=== PATIENT | female | born 1975 | race Hispanic/Latino ===

== ENCOUNTER 2024-10-29 16:12 | Emergency (ER) | payer SELFPAY ==
[~2024-10-29] VITALS: Ht 162.6 cm; Wt 86.2 kg
--- NOTE | 2024-10-29 16:45 | ERN ---
General Chief Complaint: Dizzy/Light Headed Stated Complaint: DIZZINESS Time Seen by MD: 16:15 Source: patient History of Present Illness Initial Comments Patient is a 49-year-old female coming in to be evaluated for near-syncope. Per patient she was at work bent over while she has tried to stand up she felt really dizzy. Patient states she thinks she might have passed out but is not 100% sure. The moment of evaluation triage patient is asymptomatic. Allergies: Coded Allergies: No Known Drug Allergies (Unverified Allergy, Unknown, 10/29/24) Past Medical History Past Medical History: No Pertinent History Past Surgical History: ROS Dictation CONSTITUTIONAL: No chills, no fever, no weakness, no diaphoresis, no malaise. HEAD/FACE: No signs of trauma. EENT: No eye pain, no blurred vision, no tearing, no double vision, no ear pain, no ear discharge, no nose pain, no nasal congestion, no throat pain, no throat swelling, no mouth pain. RESPIRATORY: No cough, no orthopnea, no SOB, no stridor, no wheezing. CARDIOVASCULAR: No chest pain, no edema, no palpitations, no syncope. GASTROINTESTINAL/ABDOMINAL: No abdominal pain, no constipation, no diarrhea, no nausea, no vomiting. GENITOURINARY: No abnormal discharge, no dysuria, no frequent urination, no hematuria. No complaints of pain in the genitals. MUSCULOSKELETAL: No back pain, no gout, no joint pain, no joint swelling, no muscle pain, no muscle stiffness, no neck pain. INTEGUMENTARY: No change in color, no change in hair/nails, no dryness, no lesion, no lumps, no rash. NEUROLOGICAL/PSYCH: No anxiety, not depressed, no emotional problem, no headache, no numbness, no pre-existing deficit, no history of seizures, no tremors, no weakness. HEMATOLOGIC/LYMPHATIC: Not anemic, no history of blood clots, no apparent bleeding, no bruising, glands not swollen. All Systems Negative, Except as Noted. Physical Exam Physical Exam Dictation VITAL SIGNS: Reviewed. GENERAL APPEARANCE: Alert, oriented x3, no acute distress, obese. HEAD AND FACE: Non-traumatic. EYES: PERRL, pink conjunctivas, eyelid no trauma, anterior chamber clear. EARS: Pinnas intact and no signs of trauma or erythema. Ear canals clear and no discharge. TMs no erythema. NOSE: No discharge, no bleeding. OROPHARYNX: Mouth normal, teeth no caries, tongue pink. Pharynx clear, no erythema. Tonsils no exudates, no abscesses noted. Mucous membrane moist. NECK: Supple, non-tender, no thyromegaly, no masses, no JVD, no bruits. BREAST: Deferred. CHEST: No tenderness, no crepitus, no paradoxical movement, no retractions. LUNGS: Clear, well-ventilated, symmetric, no rales, no wheezing, no rhonchi, no stridor, good breath sounds bilaterally. HEART: Regular rate, regular rhythm, no murmur, no gallops. VASCULAR: No peripheral edema. ABDOMEN: Soft, positive bowel sounds, nondistended, no guarding, nontender, no rebound, no masses no hepatomegaly, no splenomegaly, no Sinclair's sign, no hernias. RECTAL: Deferred. GENITAL: Deferred. NEUROLOGICAL: Normal speech, gross motor function intact, gross sensory function intact. MUSCULOSKELETAL: Neck nontender, full range of motion, back nontender, full range of motion. EXTREMITIES: Nontender, full range of motion. SKIN: Color pink, dry, no turgor, no rash, no lacerations, no abrasions, no contusions. LYMPHATICS: Deferred. Results Laboratory and Microbiology Lab and Micro Result Laboratory Tests Test 10/29/24 16:50 White Blood Count 6.8 K/uL (4.8-10.8) Red Blood Count 4.86 MIL/uL (4.00-5.50) Hemoglobin 14.2 g/dL (12.0-16.0) Hematocrit 43.7 % (36-48) Mean Corpuscular Volume 89.9 fL (79-99) Mean Corpuscular Hemoglobin 29.2 pg (27.0-33.0) Mean Corpuscular Hemoglobin Concent 32.5 g/dL (32.0-36.0) Red Cell Distribution Width 13.0 % (11.0-15.5) Platelet Count 160 K/uL (130-400) Mean Platelet Volume 12.8 fL (7.5-10.5) H Immature Granulocyte % (Auto) 0.3 % (0-1) Neutrophils (%) (Auto) 71.8 % (40.0-77.0) Lymphocytes (%) (Auto) 20.1 % (21.0-51.0) L Monocytes (%) (Auto) 5.6 % (3.0-13.0) Eosinophils (%) (Auto) 1.6 % (0.0-8.0) Basophils (%) (Auto) 0.6 % (0.0-5.0) Neutrophils # (Auto) 4.9 K/uL (1.8-7.7) Lymphocytes # (Auto) 1.4 K/uL (1.0-4.8) Monocytes # (Auto) 0.4 K/uL (0.1-1.0) Eosinophils # (Auto) 0.11 K/uL (0.00-0.70) Basophils # (Auto) 0.04 K/uL (0.00-0.20) Absolute Immature Granulocyte (auto 0.02 K/uL (0-1) Nucleated Red Blood Cells 0.0 % (0.0-0.19) Prothrombin Time 9.8 SEC (9.6-11.6) Prothromb Time International Ratio <= 0.93 (0.85-1.15) Activated Partial Thromboplast Time 25.4 SEC (26.3-35.5) L Sodium Level 145 mmol/L (136-145) Potassium Level 4.3 mmol/L (3.5-5.1) Chloride Level 106 mmol/L (101-111) Carbon Dioxide Level 34 mmol/L (21-32) H Blood Urea Nitrogen 6 mg/dL (7-18) L Creatinine 0.7 mg/dL (0.5-1.0) Glomerular Filtration Rate Calc 107 mL/min (>90) Random Glucose 94 mg/dL (70-105) Total Calcium 8.8 mg/dL (8.5-10.1) Magnesium Level 2.00 mg/dL (1.80-2.40) Total Creatine Kinase 33 U/L (21-232) Troponin I High Sensitivity 5 ng/L (4-50) B-Type Natriuretic Peptide 17 pg/mL (0-100) Labs Reviewed?: Yes EKG/XRAY/US/CT/MRI EKG Comment 10/29/2024 time 4:45 p.m. Ventricular rate 61 Sinus rhythm [place] [address] wave elevation or depression MDM MDM: Differential diagnosis: Rationale: Tests considered and ordered secondary to shared decision making include: Previous outside records reviewed: Old ER visits. Risk of complication and/or morbidity or mortality of patient management: None Medications-Per medication reconciliation Need for hospitalization: Patient does not meet criteria for hospitalization. Need for emergency major/minor surgery: No There are no social concerns with this patient. Prescription drug management Prescriptions will include symptomatic care Patient's prior external medical records from other ER visits were reviewed by me as indicated. Prior testing and results from previous visits were reviewed. Prior tests were taken into account with medical decision making and resource utilization, independent historian/historians were used to obtain complete medical history. I independently interpreted the test that were performed, results were reviewed by me and considered findings on radiology if ordered. Medical management and examination interpretation discussions were had by me with other qualified healthcare professionals as indicated for the patient's care. ED Course Orders Procedure Category Date Status Time Cbc With Differential LAB 10/29/24 Complete 16:34 Prothrombin Time With LAB 10/29/24 Complete INR 16:34 B-Type Natriuretic LAB 10/29/24 Complete Peptide 16:34 Chest 1vw RAD 10/29/24 Resulted 16:34 12 Lead Ekg Tracing- EKG 10/29/24 Complete Technical 16:34 Lactated Ringers PHA 10/29/24 Complete 1000ml (Lactated 17:00 Magnesium LAB 10/29/24 Complete 16:34 Creatine Kinase, Total LAB 10/29/24 Complete 16:34 Troponin I High LAB 10/29/24 Complete Sensitivity 16:34 Urinalysis Profile LAB 10/29/24 In Process 16:34 Partial LAB 10/29/24 Complete Thromboplastin Time 16:34 Basic Metabolic Panel LAB 10/29/24 Complete 16:34 Current Medications Medications (Trade) Dose Ordered Sig/Sam Route PRN Reason Start Time Stop Time Status Last Admin Dose Admin Lactated Ringer's 1,000 ml @ 0 mls/hr ONCE ONCE IV 10/29/24 17:00 10/29/24 17:01 DC 10/29/24 17:26 Vital Signs Date Time Temp Pulse Resp B/P (MAP) Pulse Ox O2 Delivery O2 Flow Rate FiO2 10/29/24 17:30 97.9 67 18 142/89 96 Room Air* 0 21 10/29/24 16:13 98.2 76 16 136/91 97 Room Air* 0 21 10/29/24 16:13 98.2 76 16 136/91 97 Room Air 0 DX & DISP Disposition: Other(Comment) (Patient care transitioned to Dr. Young) Departure Condition: Stable Referrals: SELF,REFERRAL (PCP) PRAVEENA GEORGE MD Oct 29, 2024 16:45
--- NOTE | 2024-10-29 16:47 | EKG ---
[facility] Test Date: 2024-10-29 Test Time: 16:45:05 Pat Name: ENEDELIA LARES Department: ED Room: Gender: F [place] [place] Singer: [id number] : 1975 Requested By: PRAVEENA GEORGE Order Number: [id number] Reading MD: Marcial Blackwood Measurements Intervals [place] Rate: 61 P: 56 AL: 150 QRS: 5 QRSD: 94 T: 45 QT: 386 QTc: 390 Interpretive Statements Sinus rhythm No previous ECG available for comparison Electronically Signed On 11-01-2024 17:32:10 CHIEF COMMUNICATIONS OFFICER by Marcial Blackwood Please click the below link to view image of tracing.
--- NOTE | 2024-10-29 17:02 | HMCIMG ---
Exam Type: CHEST 1VW Clinical Information: syncope Comparison: None Findings: The lungs are clear of infiltrates. The heart is enlarged. Bony and soft tissue structures of the chest wall are unremarkable. IMPRESSION: Cardiomegaly. Clear lungs.
[2024-10-29 17:03] LABS: BASOPHILS # (AUTO) 0.04 K/uL (0.00-0.20); BASOPHILS % (AUTO) 0.6 % (0.0-5.0); EOSINOPHILS # (AUTO) 0.11 K/uL (0.00-0.70); EOSINOPHILS % (AUTO) 1.6 % (0.0-8.0); HEMATOCRIT 43.7 % (36-48); IMMATURE GRANULOCYTE ABSOLUTE 0.02 K/uL (0-1); LYMPHOCYTES # (AUTO) 1.4 K/uL (1.0-4.8); LYMPHOCYTES % (AUTO) 20.1 % (21.0-51.0); MEAN CORPUSCULAR HEMOGLOBIN 29.2 pg (27.0-33.0); MEAN CORPUSCULAR HGB CONC 32.5 g/dL (32.0-36.0); MEAN CORPUSCULAR VOLUME 89.9 fL (79-99); MONOCYTES # (AUTO) 0.4 K/uL (0.1-1.0); MONOCYTES % (AUTO) 5.6 % (3.0-13.0); NEUTROPHILS # (AUTO) 4.9 K/uL (1.8-7.7); NEUTROPHILS % (AUTO) 71.8 % (40.0-77.0); PLATELET COUNT (AUTO) 160 K/uL (130-400); RED BLOOD CELL COUNT(AUTO) 4.86 MIL/uL (4.00-5.50); WHITE BLOOD COUNT (AUTO) 6.8 K/uL (4.8-10.8)
[2024-10-29 17:15] LABS: CREATININE 0.7 mg/dL (0.5-1.0); POTASSIUM 4.3 mmol/L (3.5-5.1)
[2024-10-29 17:17] LABS: INR <= 0.93 (0.85-1.15); PROTHROMBIN TIME 9.8 SEC (9.6-11.6)
[2024-10-29 17:19] LABS: PARTIAL THROMBOPLASTIN TIME 25.4 SEC (26.3-35.5)
[2024-10-29] MEDS: LACTATED RINGERS 1000ML 1,000 ML IV ONE (17:26)
[2024-10-29 17:36] LABS: B-TYPE NATRIURETIC PEPTIDE 17 pg/mL (0-100)
--- NOTE | 2024-10-29 18:48 | NUR ---
ORTHOSTATIC VITALS LAYING: BP 156/83 HEART RATE 77 99 PERCENT RA SITTING: BP 152/99 HEART RATE 87 99 PERCENT RA STANDING:BP 155/101 HEART RATE 68 99 PERCENT RA
[2024-10-29 18:49] LABS: APPEARANCE,URINE CLEAR (CLEAR); BILIRUBIN,URINE NEGATIVE (NEGATIVE); COLOR,URINE LIGHT-YELLOW (YELLOW); GLUCOSE, URINE (UA) NEGATIVE (NEGATIVE); KETONES,URINE NEGATIVE (NEGATIVE); LEUKOCYTE ESTERASE ,URINE 75 Leu/uL (NEGATIVE); NITRATE,URINE NEGATIVE (NEGATIVE); OCCULT BLOOD,URINE NEGATIVE (NEGATIVE); PH,URINE 6.5 (5.0-8.0); PROTEIN,URINE NEGATIVE (NEGATIVE); UROBILINOGEN,URINE 0.2 mg/dL (0.2-1.0)
[2024-10-29 18:57] LABS: ADD UA MICROSCOPIC YES
[2024-10-29 19:04] LABS: SQUAMOUS EPITHELIAL CELL,UR RARE /HPF (0-2)
--- NOTE | 2024-10-29 19:12 | NUR ---
PT REFUSED FLU AND COVID SWAB
--- NOTE | 2024-10-29 19:50 | HMCIMG ---
CT HEAD WITHOUT CONTRAST INDICATION: Vertigo TECHNIQUE: Noncontrast axial helical CT images from the vertex through the skull base using 5 mm slice thickness without contrast material. CT was performed with one or more of the following dose reduction techniques: Automated exposure control, adjustment of the mA and/or kV according to patient size, or use of iterative reconstruction technique. COMPARISON: None FINDINGS: The cerebral and cerebellar hemispheres are age-appropriate in appearance. No evidence for abnormal extra-axial fluid collections or masses. The ventricles and sulci are normal in size and configuration. No evidence for intracranial parenchymal, epidural, or subdural hemorrhage, mass effect or midline shift. The robles-white matter differentiation is well preserved. No secondary evidence to suggest acute ischemia. The brainstem and cerebellum appear normal. The visualized orbits appear unremarkable. The visible paranasal sinuses and mastoid air cells are clear. The calvarium appears normal. IMPRESSION: No acute intracranial process identified.
--- NOTE | 2024-10-29 19:57 | NUR ---
TOOK OVER PATIENT AT THIS TIME
[2024-10-29 19:58] VITALS: BP 140/88; PULSE 70; RESP 18; TEMP 97.8; O2SAT 96
--- NOTE | 2024-10-29 20:03 | NUR ---
AT THIS TIME PATIENT CONTINUES TO REFUSE COVID AND FLU SWABS, ED SOCIAL SCIENCE PROFESSOR MADE AWARE
[2024-10-29] MEDS: Solu-medROL 125MG VIAL IVP ONE (20:32)
[2024-10-29] MEDS: mecliZINE HCL 12.5 MG TABLET PO ONE (20:32)
[2024-10-29] MEDS ORDERED: NITR100C4 PO (20:52)
[2024-10-29] MEDS ORDERED: PRED20TA3 PO (20:52)
[2024-10-29] MEDS ORDERED: MECL-302 PO (20:52)
== END 2024-10-29 20:58 | disposition home or self-care (01) ==
LOC: EDH 16:12
DX: N39.0 Urinary tract infection, site not specified (principal); R42 Dizziness and giddiness; E66.9 Obesity, unspecified; Z98.890 Other specified postprocedural states; Z68.32 Body mass index [BMI] 32.0-32.9, adult
CPT/HCPCS: 99285; 96374; 96361; 70450; 71045; 82550; 83735; 84484; 80048; 83880; 85025; 85610; 85730; 87086 ×2; 87186; 81001; 36415; 93005; J2919; J7030